=== PATIENT | female | born 1960 | race Caucasian/White ===

== ENCOUNTER 2018-09-09 06:43 | Day surgery (SDC) | payer BC ==
[~2018-09-09] VITALS: Ht 152.4 cm; Wt 85.3 kg
[~2018-09-09 06:43] MED LIST: ADVIL200 MG PO; CALCIUM 500+D500 + PO; CALCIUM CHEL1 CAP PO; EQ IBUPROFEN200 MG PO; LEVAQUIN500 MG PO; LORTAB 5 PO; PERCOCET 5/325M1 TAB PO; ZANTAC 7575 MG PO
[2018-09-09 09:36] VITALS: BP 113/56
== END 2018-09-09 09:12 | disposition home or self-care (01) | DRG 951 ==
LOC: ENDO 06:43 → ORM 09:40 → ENDO 09:40 → ORM 10:45 → ENDO 10:45
PROVIDERS: ATTEND Surgery
PROC: 0DJD8ZZ Inspection of Lower Intestinal Tract, Via Natural or Artificial Opening Endoscopic (ICD-10-PCS; principal; 2018-09-09)
PROC: 0DB48ZX Excision of Esophagogastric Junction, Via Natural or Artificial Opening Endoscopic, Diagnostic (ICD-10-PCS; 2018-09-09)
PROC: 0DB78ZX Excision of Stomach, Pylorus, Via Natural or Artificial Opening Endoscopic, Diagnostic (ICD-10-PCS; 2018-09-09)
DX: Z12.11 Encounter for screening for malignant neoplasm of colon (principal); K57.30 Diverticulosis of large intestine without perforation or abscess without bleeding; K21.9 Gastro-esophageal reflux disease without esophagitis; K29.70 Gastritis, unspecified, without bleeding; Z80.0 Family history of malignant neoplasm of digestive organs

== ENCOUNTER 2023-05-19 06:41 | Day surgery (SDC) | payer BC ==
[~2023-05-19] VITALS: Ht 157.5 cm; Wt 80.3 kg
[~2023-05-19 06:41] MED LIST changes: +OMEPRAZOLE DR40 MG PO
[2023-05-19 08:45] VITALS: BP 138/55
== END 2023-05-19 09:00 | disposition home or self-care (01) | DRG 951 ==
LOC: ENDO 06:41 → ORM 12:05 → ENDO 12:05 → ORM 12:15
PROVIDERS: ATTEND Internal Medicine Gastroenterology
PROC: 0DBE8ZX Excision of Large Intestine, Via Natural or Artificial Opening Endoscopic, Diagnostic (ICD-10-PCS; principal; 2023-05-19)
DX: Z12.11 Encounter for screening for malignant neoplasm of colon (principal); K57.30 Diverticulosis of large intestine without perforation or abscess without bleeding; K64.8 Other hemorrhoids; K22.70 Barrett's esophagus without dysplasia; Z80.0 Family history of malignant neoplasm of digestive organs